=== PATIENT | male | born 1960 | race Two or more races ===

== ENCOUNTER 2022-06-18 10:40 | Emergency (ER) | payer MEDICAID, OTHER ==
[~2022-06-18] VITALS: Ht 167.6 cm; Wt 67.2 kg
[2022-06-18 11:47] VITALS: BP 167/86
== END 2022-06-18 12:24 | disposition home or self-care (01) ==
LOC: ER 10:40
DX: H54.50 Low vision, one eye, unspecified eye (principal)
CPT/HCPCS: 70450